=== PATIENT | female | born 1995 | race Caucasian/White ===

== ENCOUNTER 2017-08-21 15:37 | Emergency (ER) | payer OTHER ==
[~2017-08-21] VITALS: Ht 167.6 cm; Wt 86.2 kg
--- NOTE | ~2017-08-21 | EKG ---
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: KERRIE : 1995 Requested By: Rafael Wiley Order Number: [id number] MD: Vivek Chavarria Measurements Intervals [place] Rate: 118 P: 20 MO: 160 QRS: 4 QRSD: 81 T: 152 QT: 292 QTc: 410 Interpretive Statements Sinus tachycardia Low voltage, precordial leads Borderline repolarization abnormality No previous ECG available for comparison Electronically Signed On 08-22-2017 7:47:40 CDT by Vivek Chavarria [email or web address] <ELECTRONICALLY SIGNED> By: Vivek Chavarria MD, [facility] 08/22/17 0747 1619 1619 Vivek Chavarria MD, FACC /EPI
[2017-08-21] MEDS ORDERED: WELLBUTRIN 100100 MG PO (16:15)
[2017-08-21] MEDS ORDERED: CLOZARIL25 MG PO (16:16)
[2017-08-21] MEDS ORDERED: KLONOPIN0.5 MG PO (16:17)
[2017-08-21 16:41] LABS: ABSOLUTE NEUTROPHILS 5.1 thou/uL (1.4-8.2); BASOPHILS 0.3 % (0.0-2.0); HEMATOCRIT 41.7 % (37.0-47.0); HEMOGLOBIN 14.3 gm/dL (12.0-15.0); LYMPHOCYTES 33.4 % (24.0-44.0); MCH 30.2 pg (26.0-34.0); MCHC 34.2 g/dL (28.0-37.0); MCV 88.5 fL (80.0-100.0); MONOCYTES 6.6 % (1.0-8.0); PLATELET COUNT 210 thou/uL (150-400); POLYS 59.7 % (36.0-66.0); RBC 4.72 mil/uL (4.20-5.00); RDW 13.3 % (10.5-14.5); WBC 8.6 thou/uL (4.0-11.0)
[2017-08-21 16:51] LABS: CALCIUM 9.3 mg/dL (8.5-10.1); POTASSIUM 3.8 mmol/L (3.5-5.1)
[2017-08-21 17:18] VITALS: BP 116/76
== END 2017-08-21 17:39 | disposition home or self-care (01) ==
LOC: ER 15:37
PROVIDERS: Physician Assistant
DX: R06.02 Shortness of breath (principal)